=== PATIENT | male | born 1980 | race Caucasian/White ===

== ENCOUNTER → 2016-11-24 | Outpatient (CLI) | payer OTHER ==
[2016-11-24 17:10] LABS: MEAN PLATELET VOLUME 9.5 FL (6.0-9.5); WHITE BLOOD COUNT 6.13 10^3uL (4.0-11.0)
[2016-11-24 17:20] LABS: ALBUMIN 4.8 g/dL (3.4-5.0); ANION GAP 16.9 MEQ/L (3-15); CALCULATED IONIZED CALCIUM 3.8 mg/dL (3.8-4.6); TOTAL PROTEIN 8.3 g/dL (6.4-8.5)
[2016-11-24 17:22] LABS: MEAN CORPUSCULAR HEMOGLOBIN 31.4 PG (26.0-34.0); MEAN CORPUSCULAR HGB CONC 36.4 g/dL (31.0-37.0)
== END ==
LOC: LAB 16:54
PROVIDERS: ATTEND Internal Medicine Rheumatology
DX: M06.4 Inflammatory polyarthropathy (principal); E79.0 Hyperuricemia without signs of inflammatory arthritis and tophaceous disease; L40.8 Other psoriasis
CPT/HCPCS: 36415; 80053; 84550; 85027; 85652; 86140

== ENCOUNTER 2016-12-13 13:20 | Emergency (ER) | payer OTHER ==
[~2016-12-13] VITALS: Ht 195.6 cm; Wt 104.1 kg
[2016-12-13 13:54] LABS: BILIRUBIN,URINE Negative (Negative); CLARITY,URINE Clear; COLOR,URINE Yellow; GLUCOSE, URINE (UA) Negative (Negative); LEUKOCYTE ESTERASE ,URINE Negative (Negative); PH,URINE 5.5 (5.0 - 8.0); UROBILINOGEN,URINE 0.2 mg/dL (0.2-1.0)
[2016-12-13 13:55] LABS: MEAN CORPUSCULAR VOLUME 86 FL (80-100); MEAN PLATELET VOLUME 9.7 FL (6.0-9.5); PLATELET COUNT 312 10^3uL (150-450); WHITE BLOOD COUNT 5.73 10^3uL (4.0-11.0)
[2016-12-13 14:06] LABS: MEAN CORPUSCULAR HGB CONC 37.3 g/dL (31.0-37.0)
[2016-12-13] MEDS ORDERED: SODIUM CHLORIDE FLUSH 3 ML SYR IV ONE (14:10)
[2016-12-13] MEDS ORDERED: SODIUM CHLORIDE FLUSH 10 ML SYR IV PRN (14:10)
[2016-12-13 14:11] LABS: URINE CENTRIFUGED VOLUME 12 mL
[2016-12-13 14:12] LABS: RBC,URINE 0-2 /HPF
[2016-12-13 14:17] LABS: ALBUMIN 4.8 g/dL (3.4-5.0); ALKALINE PHOSPHATASE 77 U/L (38-126); ANION GAP 16.4 MEQ/L (3-15); BUN/CREATININE RATIO 13 (10-20); CREATINE KINASE 130 U/L (55-170); TOTAL PROTEIN 7.9 g/dL (6.4-8.5)
[2016-12-13 14:41] LABS: BAND NEUTROPHILS % 0 % (0-6); EOSINOPHILS % 0 % (0-4); LYMPHOCYTES # 1.7 #; MONOCYTES # 0.4 #; MONOCYTES % 7 % (3-11); RBC MORPH NORMAL (NORMAL); SEGMENTED NEUTROPHILS % 62 % (51-67); TOTAL CELLS COUNTED 100
[2016-12-13 14:47] LABS: AMPHETAMINE SCREEN, URINE Negative (Negative); CANNABINOID SCREEN, URINE Negative (Negative); METHAMPHETAMINE SCREEN URINE S NEGATIVE (NEGATIVE); OPIATE SCREEN URINE Negative (Negative)
[2016-12-13 14:48] LABS: PROPOXYPHENE STAT NEGATIVE (NEGATIVE)
--- NOTE | 2016-12-13 15:47 | NUR ---
REPORT TO Chuck ANN RN AND SHE ACCEPTED CARE OF PT
[2016-12-13 16:13] VITALS: BP 120/77
== END 2016-12-13 16:11 | disposition home or self-care (01) ==
LOC: ED 13:21
DX: R51 Headache (principal); L40.50 Arthropathic psoriasis, unspecified; R63.1 Polydipsia; R53.83 Other fatigue; R42 Dizziness and giddiness; Z87.891 Personal history of nicotine dependence; F12.21 Cannabis dependence, in remission
CPT/HCPCS: 36415; 70450; 80053; 80307; 80320; 80329; 81003; 81015; 82550; 82553; 83036; 84443; 84484; 85025; 85379; 86140; 93005; 93010; 99284; 99285

== ENCOUNTER → 2016-12-13 | Outpatient (CLI) | payer OTHER ==
[2016-12-13 13:22] VITALS: BP 126/82
== END ==
LOC: MHUC 12:58
PROVIDERS: ATTEND Physician Assistant
DX: R63.1 Polydipsia (principal)

== ENCOUNTER → 2016-12-17 | Outpatient (CLI) | payer OTHER | LOC: RAD 08:12 | PROVIDERS: ATTEND Family Medicine | DX: R41.0 Disorientation, unspecified (principal) | CPT/HCPCS: 70553; A9579 ==